=== PATIENT | female | born 1980 | race Hispanic/Latino ===

== ENCOUNTER 2020-03-23 11:15 | Inpatient (IN) | payer MEDICAID, OTHER, SELFPAY ==
[2020-03-23] MEDS ORDERED: hydrALAZINE 20 MG/ML VIAL SLOW IVP PRN ×3 (11:42→18:15)
[2020-03-23] MEDS ORDERED: Acetaminophen 500 MG TAB PO PRN (11:51)
[2020-03-23] MEDS ORDERED: Lactated Ringer's 1,000 ML IV SCH (12:00)
--- NOTE | 2020-03-23 12:07 | PDOC.FPROB ---
FMR OB H&P: Medications - Current Home Medications: Medication Instructions Recorded Confirmed Type Vit,Calc76/Iron/Folic 1 tablet PO DAILY 10/01/15 03/23/20 History [Prenatabs Rx Tablet] Aspirin [Ecotrin Low Strength] 81 mg PO DAILY 03/23/20 03/23/20 History Allergies/Adverse Reactions: Allergies Allergy/AdvReac Type Severity Reaction Status Date / Time No Known Allergies Allergy Verified 10/02/15 12:09 FMR OB H&P: Vital Signs - Maternal Vital signs: Vital Signs - First Documented Temp Pulse Resp BP 98.2 F 59 L 18 156/8 H 03/23/20 11:19 03/23/20 11:19 03/23/20 11:19 03/23/20 11:19 FMR OB H&P: A/P - Problem List (1) Delivered by delivery following previous delivery Current Visit: No Status: Acute Code(s): [id number] - (2) Previous delivery affecting Current Visit: No Status: Acute Code(s): O34.21 - MATERNAL CARE FOR SCAR FROM PREVIOUS * DO NOT USE * Discussion: Date/Time: 03/23/20 1206 PCP: SENAIT Dhillon HPI: Patient sent over from clinic for evaluation of pre-e. High pressures in clinic 157/91, 148/89. Here 156/92, 140/92. States she has had headache for 1 day, no visual changes, no swelling. Does have epigastric burning after eating, pain radiates to LUQ. She affirms movement, denies cxns, ROM, bleeding. History: OB hx: C/s x3, A1GDM, denies history of PIH, AMA, Varicella non-immune PMH: denies asthma, htn PSH: c/s x3 Meds: PNV All: NKDA Soc Hx: denies smoking, alcohol, drugs Fam Hx: 1 child with down syndrome GBS: neg Blood type: O+ Ab screen: neg HIV: neg RPR: neg Hep B: neg Rubella: immune Quad Screen: 2 hr GTT: + GC/CT: neg NIPT: neg REVIEW OF SYSTEMS: Gen: no fever, chills, or sweats Neuro: no numbness/tingling, no weakness, denies headache ENT: denies congestion Eyes: no visual changes Resp: denies cough, no production, no SOB, no wheeze Card: denies chest pain, no palpitations GI: denies nausea, vomiting, diarrhea : no dysuria, no hematuria Skin: no rash, no erythema Psych: denies hx anxiety/depression Vitals: T: 98.5 R: 18 BP: 133/69 (max 156/92) P:67 at: 98% on RA PHYSICAL EXAMINATION: General: NAD, alert and oriented x3 HEENT: EOMI, normal sclera Neck: Supple. Full ROM. Heart/Cardiovascular System: RRR, Cap refill < 3 seconds, no rub, no murmur Lungs/Respiratory System: clear to auscultation bilaterally. No increased work of breathing. Room air. Abdomen/Gastro-Intestinal System: no abdominal tenderness, normal bowel sounds, Gravid Extremities: Warm extremities. No cyanosis or edema. Neuro: No gross deficits appreciated Psychiatry: Awake, Alert and cooperative with exam Skin: no lesions, no rashes Musculoskeletal: Full ROM A/P: This is a 39yo at 37.7 weeks by 25.3 sono FHT: 140 baseline, mod variability, no decels, accels present [place]: no contractions # PIH eval - Cbc, cmp, urine pr/cr - Repeated elevated pressure (157/91, 148/89, 156/92, 140/92) - Monitor pressures, may need to proceed with delivery pending eval # - Posterior placenta - [place] 14.3% @ 34wks - Previous c/s x3 - Late to care, dated by 25 wk US # Varicella non- immune - Vaccine PP # A1GDM # AMA
[2020-03-23 12:16] LABS: Hemoglobin 11.8 g/dL (12.0-16.0); Mean Corpuscular HGB CONC 31.2 g/dL (32.0-36.0); Mean Corpuscular Hemoglobin 28.1 pg (27.0-31.0); Mean Corpuscular Volume 90.1 fL (78.0-98.0); Mean Platelet Volume 10.1 fL (7.4-10.4); Platelet Count 221 thou/uL (130-400); RBC Distribution Width 14.1 % (11.5-14.5); Red Blood Cell (RBC) Count 4.18 mill/uL (4.20-5.40); White Blood Cell (WBC) Count 7.2 thou/uL (4.8-10.8)
[2020-03-23 12:26] LABS: Creatinine, Urine Less than 20.00 mg/dL (47-110); Protein, Urine Random Quant Less than 10 mg/dL (1-14)
[2020-03-23 12:34] LABS: ALT (SGPT) 23 U/L (8-55); AST (SGOT) 20 U/L (5-34); Albumin 3.4 g/dL (3.5-5.0); Alkaline Phosphatase 179 U/L (40-110); Anion Gap 14 mmol/L (10-20); BUN (Urea Nitrogen) 9 mg/dL (7.0-18.7); Bilirubin, Total 0.2 mg/dL (0.2-1.2); Calc. Creatinine Clearance 130 mL/min (70-130); Calcium 8.8 mg/dL (7.8-10.44); Carbon Dioxide 19 mmol/L (22-29); Chloride 104 mmol/L (98-107); Estimated GFR-MDRD Greater than 90; Glucose 80 mg/dL (70-105); Potassium 4.3 mmol/L (3.5-5.1); Protein, Total 6.4 g/dL (6.0-8.3); Sodium 133 mmol/L (136-145)
[2020-03-23] MEDS ORDERED: Ondansetron PF 4 MG/2 ML Vial IVP PRN ×3 (13:12→19:25)
[2020-03-23] MEDS ORDERED: Promethazine HCl 25 MG/ML VIAL IM PRN ×2 (13:12→19:25)
[2020-03-23] MEDS ORDERED: CEFAZOLIN 2 GM in Premix Bag 1 BAG IVPB SCH (13:15)
[2020-03-23] MEDS ORDERED: Bicitra 30 ML UDCUP PO SCH (13:15)
[2020-03-23 13:56] LABS: HBSAg Index 0.16 S/CO (0-0.99); Hep B Surf Ag Non-Reactive S/CO (NonReactive); Syphilis Antibody Nonreactive (Nonreactive); Syphilis Antibody Index 0.03 S/CO (<1.00 Non-Reactive)
[2020-03-23 13:57] VITALS: BMI 40.4
--- NOTE | 2020-03-23 14:01 | PDOC.BPN ---
- Brief Progress Note Pr/Cr ratio negative CBC, CMP WNL patient with consistent mild range pressures, 2 severe range pressure headache improved Patient late to care, currently 37.5 weeks by 23 wk coleen Discussed R/B/A to c/s with patient including NICU stay for baby. She is in agreement. Will admit patient and proceed with
[2020-03-23] MEDS ORDERED: Fentanyl 100 MCG/2 ML VIAL ONE (14:51)
[2020-03-23] MEDS ORDERED: MORPHINE 5 MG/10 ML PF VIAL ONE (14:51)
[2020-03-23] MEDS ORDERED: Dexamethasone 4 mg/ml Vial ONE (14:52)
[2020-03-23] MEDS ORDERED: Oxytocin 10 UNITS/ML VIAL ONE (14:52)
[2020-03-23] MEDS ORDERED: PHENYLEPHRINE-NS 100 MCG/ML 10 ML SYRINGE ONE (14:52)
[2020-03-23] MEDS ORDERED: Ondansetron PF 4 MG/2 ML Vial ONE (14:52)
[2020-03-23] MEDS ORDERED: EPHEDRINE 25 MG/5 ML SYRINGE ONE (15:01)
[2020-03-23] MEDS ORDERED: Ketorolac Tromethamine 30 MG/ML VIAL ONE (15:01)
[2020-03-23] MEDS ORDERED: NS / Oxytocin 40 units/1000ml 1,000 ML ONE (18:07)
[2020-03-23] MEDS ORDERED: Lanolin Ointment 7 GM TUBE TOP PRN (18:15)
[2020-03-23] MEDS ORDERED: HYDROcodone/Acetaminophen 5/325 mg Tablet PO PRN ×2 (18:15)
[2020-03-23] MEDS ORDERED: diphenhydrAMINE 25 MG CAP PO PRN (18:15)
[2020-03-23] MEDS ORDERED: Naloxone HCl 0.4 mg/ml Vial IV PRN (19:25)
[2020-03-23] MEDS ORDERED: diphenhydrAMINE 50 MG/ML VIAL IVP PRN (19:25)
[2020-03-23] MEDS ORDERED: L&D-Morphine 4 MG/ML VIAL SLOW IVP PRN (19:25)
[2020-03-23] MEDS ORDERED: Ondansetron HCl/PF 4 MG/2 ML Vial IVP PRN (19:25)
[2020-03-23] MEDS ORDERED: HYDROmorphone 2 MG/ML VIAL SLOW IVP PRN (19:25)
[2020-03-23] MEDS ORDERED: Promethazine HCl 25 MG SUPP PR PRN (19:25)
[2020-03-23] MEDS ORDERED: Meperidine HCl/PF 25 MG/ML VIAL SLOW IVP PRN (19:25)
[2020-03-23] MEDS ORDERED: Naloxone HCl 0.4 mg/ml Vial IVP PRN ×2 (19:25)
[2020-03-23] MEDS ORDERED: Communication Order-Pharmacy FS SCH (19:30)
--- NOTE | 2020-03-23 19:43 | OP ---
DATE OF PROCEDURE: 03/23/2020 PREOPERATIVE DIAGNOSES: 1. Term intrauterine . 2. Gestational hypertension. 3. Advanced maternal age. 4. A1 gestational diabetes. POSTOPERATIVE DIAGNOSES: 1. Term intrauterine , delivered. 2. Gestational hypertension. 3. Extensive fascial adhesions. 4. Advanced maternal age. 5. A1 gestational diabetes ATTENDING SURGEON: Sonu Valladares MD PRIMARY SURGEON: Vale Dhillon DO PERSONAL TRAINER SURGEON: Juan Manuel Fu DO PROCEDURE: Repeat low-transverse section. INDICATIONS FOR PROCEDURE: This is a 39-year-old female, G4, P3-0-0-3 at 37.5 weeks by 25.3 week sono who presented from clinic with elevated blood pressures. The patient has no known diagnosis of chronic hypertension or previous diagnosis of gestational hypertension or preeclampsia. Preeclampsia labs were negative, but the patient did throw two severe range pressures approximately 30 minutes apart and received hydralazine. No further severe range pressures, requiring magnesium. However, the patient did meet the criteria for gestational hypertension and a decision was made to proceed with low-transverse given new diagnosis of gestational hypertension and current gestational age. Patient with history of C/S x3. Plan for repeat C/S. PROCEDURE IN DETAIL: After risks, benefits, and alternatives were discussed with the patient in detail, she gave informed consent. The patient was taken to the operating room, where spinal anesthesia was initiated. She was placed in the supine position in a left lateral tilt. Antibiotics included 2 g of cefazolin IV. The patient was prepped and draped in the usual sterile fashion. A Pfannenstiel incision was made along the previous scar, then carried down to the level of the fascia, which was sharply nicked. The fascial edges were extended laterally with Arana scissors. The superior and inferior edges of the cut fascial edges were then lifted with Fouzia clamps and the underlying rectus muscles were sharply and bluntly dissected free. Careful attention was paid to avoid bowel and bladder during this process. A small opening was noted through the midline of the rectus muscle and it was extended manually. The peritoneum was entered bluntly and extended manually. No uterine adhesions appreciated. An Mikel O was placed. A low-transverse score was made along the lower segment of the uterus using a scalpel. The hysterotomy was extended manually. The amniotic sac was ruptured using Allis clamp. Clear fluid was noted. The infant was noted to be vertex and was easily delivered by fundal pressure. Of note, there was one loose nuchal cord x1, which was reduced prior to delivery through the hysterotomy. The cord was clamped and cut and a grossly normal female infant was handed to the awaiting nurse. Cord blood was then collected. Placenta was extracted manually. It was found to be intact with three-vessel cord and discarded. Uterus was curetted with a dry lap. Hysterotomy was then closed in a running locking fashion using #[address] An imbricating layer was performed using #[address] in a running locking fashion. Some bleeders were still noted particularly on the left lateral aspect of the hysterotomy. This was repaired using #1 chromic suture in a [id number] fashion. After this, hemostasis was noted. Irrigation was performed using warm normal saline. The hysterotomy was examined after the Mikel O was removed and again noted to be hemostatic. The abdominal muscles were examined and bleeders were cauterized. The fascia was then closed using 0 PDS suture in a running nonlocking fashion. Subcutaneous tissue was approximated using 2-0 plain gut in simple interrupted fashion. The skin was then approximated using 4-0 monofilament. Dermabond was applied. Pressure dressing then applied. All counts correct. The patient was taken to the recovery room in stable condition. COMPLICATIONS: None. Note: Fairly extensive fascial adhesions, but no intraabdominal adhesions appreciated. Placenta intact with three-vessel cord noted and discarded. Grossly normal female infant with Apgars of 8 and 9 at one and five minutes respectively. QUANTITATIVE BLOOD LOSS: 345 mL. DRAINS: [place] to gravity, draining clear urine. Job ID: [id number] [facility]
[2020-03-23] MEDS: Ferrous Sulfate 325 MG TAB PO SCH (21:00)
[2020-03-23] MEDS: Docusate Calcium (SURFAK) 240 MG CAP PO SCH (21:00)
[2020-03-23] MEDS: Simethicone Chewable 80 MG TAB PO SCH (21:22)
[2020-03-23] MEDS: Ketorolac Tromethamine 30 MG/ML VIAL IVP PRN (21:22)
[2020-03-24] MEDS: Simethicone Chewable 80 MG TAB PO SCH ×5 (01:05→22:06)
[2020-03-24] MEDS: Lactated Ringer's 1,000 ML IV SCH ×2 (02:30→03:47)
[2020-03-24] MEDS: Ketorolac Tromethamine 30 MG/ML VIAL IVP PRN (03:36)
[2020-03-24 05:34] LABS: Hemoglobin 9.5 g/dL (12.0-16.0); Mean Corpuscular HGB CONC 32.9 g/dL (32.0-36.0); Mean Corpuscular Hemoglobin 30.1 pg (27.0-31.0); Mean Corpuscular Volume 91.3 fL (78.0-98.0); Mean Platelet Volume 9.9 fL (7.4-10.4); Platelet Count 154 thou/uL (130-400); Red Blood Cell (RBC) Count 3.16 mill/uL (4.20-5.40); White Blood Cell (WBC) Count 8.6 thou/uL (4.8-10.8)
[2020-03-24] MEDS: HYDROcodone/Acetaminophen 5/325 mg Tablet PO PRN ×3 (07:10→20:15)
--- NOTE | 2020-03-24 07:32 | PDOC.PP ---
Post Progress Note Post Day #: 1 Subjective: Patient with abdominal pain near incision overnight and this AM. She denies any other concerns. She states she is passing flatus. She has not had a BM. Patient tolerating PO. Patient denies headache, vision changes, chest pain, or shortness of breath. She has not ambulated since surgery. PO intake tolerated: yes Flatus: yes Ambulation: no Vital Signs (12 hours) Temp Pulse Resp BP Pulse Ox 03/24/20 03:35 98.5 F 69 18 102/58 L 98 03/24/20 01:05 98.5 F 60 18 132/73 98 03/23/20 20:25 98.1 F 64 18 140/77 98 Weight Weight 62.596 kg - Physical Examination General: NAD Cardiovascular: RRR Respiratory: non-labored breathing Abdominal: lochia (minimal), no distention, appropriately TTP Fundus firm & at: below umbilicus Extremities: negative homans (B) Deviation from normal: Bandage in place over incision clean, dry, intact Neurological: no gross focal deficits Psychiatric: A&Ox3, normal affect Result Diagrams: 03/24/20 05:04 03/23/20 11:53 Additional Labs: Post Labs Blood Type O POSITIVE 03/23/20 13:53 Hep Bs Antigen Non-Reactive S/CO (NonReactive) 03/23/20 11:51 (1) Term delivered Code(s): O80 - ENCOUNTER FOR FULL-TERM UNCOMPLICATED DELIVERY Status: Acute (2) Gestational hypertension Code(s): O13.9 - GESTATIONAL HTN W/O SIGNIFICANT PROTEINURIA, UNSP TRIMESTER Status: Acute (3) Advanced maternal age (AMA) in Code(s): [id number] - Status: Acute (4) Obesity Code(s): E66.9 - OBESITY, UNSPECIFIED Status: Acute (5) Delivered by delivery following previous delivery Code(s): [id number] - Status: Acute - Assessment/Plan 39 year old G4 now P4 delivered term female at 15:30 on 03/23 via rLTCS Routine PP care - Pain control with ibuprofen and [place]; patient in pain this AM but has not received any [place] - Simethicone for gas pains - Encourage ambulation; discussed importance with patient - Rh positive, Rubella immune - Lochia minimal - H/H this AM 9.5/28.8 - D/c gosia [place] - BPs ranged from 102/58-140/77 overnight - No interventions necessary - Continue to monitor AMA - Unable to find NIPT screen; will call [facility] today - No obvious signs of DS; although patient does have previous with DS Obesity - Encourage ambulation Varicella non-immune - Varicella vaccine to be given Dispo: Stable. Work on pain control. Anticipate d/c home tomorrow or Friday.
[2020-03-24] MEDS: Ferrous Sulfate 325 MG TAB PO SCH ×2 (08:41→22:05)
[2020-03-24] MEDS: Docusate Calcium (SURFAK) 240 MG CAP PO SCH ×2 (08:42→22:06)
[2020-03-24] MEDS: Prenatal Vitamin 1 TAB PO SCH (08:44)
[2020-03-24] MEDS ORDERED: Adacel (T-DAP) 0.5 ML SYRINGE IM ONE (09:00)
[2020-03-24] MEDS ORDERED: Varicella virus, LIVE 0.5 ML VIAL SC ONE (09:00)
[2020-03-24] MEDS: Ibuprofen 800 MG TAB PO SCH (22:07)
[2020-03-25] MEDS: Simethicone Chewable 80 MG TAB PO SCH ×7 (01:16→21:27)
[2020-03-25] MEDS: HYDROcodone/Acetaminophen 5/325 mg Tablet PO PRN ×4 (01:29→18:15)
[2020-03-25] MEDS: Ibuprofen 800 MG TAB PO SCH ×3 (05:18→21:26)
--- NOTE | 2020-03-25 06:09 | PDOC.EVN ---
Event Note - Event Note Event Note: OBGYN Faculty Patient seen at bedside Doing well, but gets some gas discomfort. No BM. Abd NT, non-distended See [facility] resident notes
--- NOTE | 2020-03-25 07:12 | PDOC.PP ---
Post Progress Note Post Day #: 2 Subjective: Patient doing better this AM. No lochia. States she is having gas pains. Ambulating without much difficulty. Tolerating PO. Has yet to have BM. Patient states she would like to stay another night with plan for d/c home tomorrow. PO intake tolerated: yes Flatus: yes Ambulation: yes Vital Signs (12 hours) Temp Pulse Resp BP Pulse Ox 03/25/20 05:15 98.3 F 67 18 131/70 03/25/20 01:15 98.8 F 52 L 18 123/68 03/24/20 19:50 98.6 F 60 18 134/78 99 Weight Weight 62.596 kg - Physical Examination General: NAD Cardiovascular: no m/r/g, RRR Respiratory: clear to auscultation bilaterally, non-labored breathing Abdominal: + bowel sounds, lochia (none), no distention, appropriately TTP Fundus firm & at: below umbilicus Extremities: negative homans (B) Skin: CS incision dry & intact, no rash Neurological: no gross focal deficits Psychiatric: A&Ox3, normal affect Result Diagrams: 03/24/20 05:04 03/23/20 11:53 Additional Labs: Post Labs Blood Type O POSITIVE 03/23/20 13:53 Hep Bs Antigen Non-Reactive S/CO (NonReactive) 03/23/20 11:51 (1) Term delivered Code(s): O80 - ENCOUNTER FOR FULL-TERM UNCOMPLICATED DELIVERY Status: Acute (2) Gestational hypertension Code(s): O13.9 - GESTATIONAL HTN W/O SIGNIFICANT PROTEINURIA, UNSP TRIMESTER Status: Acute (3) Advanced maternal age (AMA) in Code(s): [id number] - Status: Acute (4) Obesity Code(s): E66.9 - OBESITY, UNSPECIFIED Status: Acute (5) Delivered by delivery following previous delivery Code(s): [id number] - Status: Acute - Assessment/Plan 39 year old G4 now P4 delivered term female infant at 15:30 on 03/23 via [facility]LTCS Routine PP care - Post op day #2 s/p rLTCS - Pain control with ibuprofen and [place] - Simethicone for gas pains - Encourage ambulation; discussed importance with patient - Rh positive, Rubella immune - Lochia minimal - H/H post op 9.5/28.8 - GBS negative gHTN - BPs all <140/90 in last 24 hours - No interventions necessary - Continue to monitor AMA - NIPT negative - No obvious signs of DS; although patient does have previous with DS Obesity - Encourage ambulation Varicella non-immune - Varicella vaccine to be given A1GDM - Will need 2h GTT at 6 wk PP check Dispo: Stable. Plan for d/c home tomorrow
[2020-03-25] MEDS: Prenatal Vitamin 1 TAB PO SCH (09:42)
[2020-03-25] MEDS: Docusate Calcium (SURFAK) 240 MG CAP PO SCH ×2 (09:42→21:27)
[2020-03-25] MEDS: Ferrous Sulfate 325 MG TAB PO SCH ×2 (09:43→21:26)
[2020-03-25] MEDS: Lactated Ringer's 1,000 ML IV SCH (10:52)
[2020-03-26] MEDS: Simethicone Chewable 80 MG TAB PO SCH ×4 (00:35→12:42)
[2020-03-26] MEDS: HYDROcodone/Acetaminophen 5/325 mg Tablet PO PRN ×3 (04:07→12:42)
[2020-03-26] MEDS: Ibuprofen 800 MG TAB PO SCH (05:57)
--- NOTE | 2020-03-26 06:50 | PDOC.PP ---
Post Progress Note Post Day #: 3 Subjective: Patient doing well this morning. She endorses intermittent pain in abdomen which is relieved with pain medications. Of note, patient had last normal BP documented at 19:00 last night. BP's since that time have been in 140's-150's. Nurse initially attributed this to pain, but only two BP's documented overnight and they were nearly 8 hours apart which is not enough data points to assess adequately and patient high risk. Patient denies headache, vision changes, RUQ pain, increased swelling. PO intake tolerated: yes Flatus: yes Ambulation: yes Vital Signs (12 hours) Temp Pulse Resp BP Pulse Ox 03/26/20 05:58 67 16 144/72 H 03/26/20 04:09 98.1 F 74 18 155/79 H 98 03/25/20 19:27 98.4 F 61 18 146/71 H 98 Weight Weight 62.596 kg - Physical Examination General: NAD Cardiovascular: no m/r/g, RRR Respiratory: clear to auscultation bilaterally, non-labored breathing Abdominal: + bowel sounds, lochia (minimal), no distention, appropriately TTP Fundus firm & at: below umbilicus Extremities: negative homans (B) Skin: CS incision dry & intact, no rash Neurological: no gross focal deficits Psychiatric: A&Ox3, normal affect Result Diagrams: 03/26/20 07:01 03/26/20 07:01 Additional Labs: Post Labs Blood Type O POSITIVE 03/23/20 13:53 Hep Bs Antigen Non-Reactive S/CO (NonReactive) 03/23/20 11:51 (1) Term delivered Code(s): O80 - ENCOUNTER FOR FULL-TERM UNCOMPLICATED DELIVERY Status: Acute (2) Gestational hypertension Code(s): O13.9 - GESTATIONAL HTN W/O SIGNIFICANT PROTEINURIA, UNSP TRIMESTER Status: Acute (3) Advanced maternal age (AMA) in Code(s): [id number] - Status: Acute (4) Obesity Code(s): E66.9 - OBESITY, UNSPECIFIED Status: Acute (5) Delivered by delivery following previous delivery Code(s): [id number] - Status: Acute - Assessment/Plan 39 year old G4 now P4 delivered term female infant at 15:30 on 03/23 via [facility]LTCS Routine PP care - Post op day #3 s/p rLTCS - Pain control with ibuprofen and [place] - Simethicone for gas pains - Encourage ambulation; discussed importance with patient - Rh positive, Rubella immune - Lochia minimal - H/H post op 9.5/28.8 - GBS negative gHTN - BP's overnight 140's-150's. Concern now for pre-E - Pre-E labs pending - q2h BP checks - Only two documented temps overnight; do not have enough data points to adequately assess at this time - If next 2 BP checks still elevated >140/90, consider starting oral medication - If BP's normalize, patient will need BP check tomorrow at [facility] AMA - NIPT negative - No obvious signs of DS; although patient does have previous infant with DS Obesity - Encourage ambulation Varicella non-immune - Varicella vaccine to be given A1GDM - Will need 2h GTT at 6 wk PP check Dispo: Stable. Monitor BP's this AM. If BP's continue to be elevated this AM, may need to start on oral medication. Possible d/c home later today.
[2020-03-26 07:09] LABS: #Eosinphils 0.1 thou/uL (0.0-0.7); #Lymphocytes 2.4 thou/uL (1.20-3.40); #Monocytes 0.5 thou/uL (0.11-0.59); #Neutrophils 8.9 thou/uL (1.40-6.50); %Basophils 0.3 % (0.0-1.0); %Eosinophils 1.2 % (0.0-10.0); %Monocytes 4.5 % (0.0-10.0); Hemoglobin 10.1 g/dL (12.0-16.0); Mean Corpuscular HGB CONC 33.7 g/dL (32.0-36.0); Mean Corpuscular Volume 91.8 fL (78.0-98.0); Mean Platelet Volume 9.6 fL (7.4-10.4); Platelet Count 173 thou/uL (130-400); RBC Distribution Width 14.7 % (11.5-14.5); Red Blood Cell (RBC) Count 3.26 mill/uL (4.20-5.40)
[2020-03-26 07:44] LABS: ALT (SGPT) 39 U/L (8-55); AST (SGOT) 38 U/L (5-34); Alkaline Phosphatase 132 U/L (40-110); Anion Gap 11 mmol/L (10-20); BUN (Urea Nitrogen) 7 mg/dL (7.0-18.7); Bilirubin, Total 0.2 mg/dL (0.2-1.2); Calc. Creatinine Clearance 130 mL/min (70-130); Calcium 8.4 mg/dL (7.8-10.44); Carbon Dioxide 24 mmol/L (22-29); Chloride 106 mmol/L (98-107); Estimated GFR-MDRD Greater than 90; Globulin 2.6 g/dL (2.4-3.5); Glucose 89 mg/dL (70-105); Potassium 4.3 mmol/L (3.5-5.1); Protein, Total 5.6 g/dL (6.0-8.3); Sodium 137 mmol/L (136-145)
[2020-03-26 07:46] VITALS: TEMP 98
[2020-03-26] MEDS: Ferrous Sulfate 325 MG TAB PO SCH (08:35)
[2020-03-26] MEDS: Docusate Calcium (SURFAK) 240 MG CAP PO SCH (08:35)
[2020-03-26] MEDS: Prenatal Vitamin 1 TAB PO SCH (08:35)
[2020-03-26 09:26] LABS: Creatinine, Urine 72.11 mg/dL (47-110); Protein, Urine Random Quant Less than 10 mg/dL (1-14)
[2020-03-26 12:52] VITALS: BP 136/74
== END 2020-03-26 14:20 | disposition home or self-care (01) | DRG 788 ==
LOC: L&D/OP 11:15 → L&D 13:54 → 3SW 18:37
PROVIDERS: ADMIT Obstetrics & Gynecology; ATTEND Obstetrics & Gynecology
PROC: 10D00Z1 Extraction of Products of Conception, Low, Open Approach (ICD-10-PCS; principal; 2020-03-23)
DX: O13.4 Gestational [pregnancy-induced] hypertension without significant proteinuria, complicating childbirth (principal); O34.211 Maternal care for low transverse scar from previous cesarean delivery; O99.214 Obesity complicating childbirth; E66.9 Obesity, unspecified; O24.429 Gestational diabetes mellitus in childbirth, unspecified control; Z3A.37 37 weeks gestation of pregnancy; Z37.0 Single live birth
CPT/HCPCS: 36415; 51702; 80053; 82570; 84156; 85025; 85027; 86780; 86850; 86900; 86901; 87340; 99285; J0360; J1100; J1885; J2274; J2405; J2590; J3010

== ENCOUNTER 2023-03-09 11:31 | Emergency (ER) | payer MEDICAID, SELFPAY ==
[2023-03-09 12:43] LABS: #Lymphocytes 1.8 thou/uL (1.20-3.40); #Monocytes 0.8 thou/uL (0.11-0.59); #Neutrophils 3.2 thou/uL (1.40-6.50); %Basophils 0.4 % (0.0-1.0); %Eosinophils 0.1 % (0.0-10.0); %Lymphocytes 31.4 % (21.0-51.0); %Monocytes 13.2 % (0.0-10.0); Hemoglobin 11.9 g/dL (12.0-16.0); Mean Corpuscular HGB CONC 34.4 g/dL (32.0-36.0); Platelet Count 206 10x3/uL (130-400); RBC Distribution Width 17.6 % (11.5-14.5); Red Blood Cell (RBC) Count 3.97 mill/uL (4.20-5.40); White Blood Cell (WBC) Count 5.7 10x3/uL (4.8-10.8)
[2023-03-09 12:51] LABS: BHCG - Serum Negative (NEGATIVE); Pregs Control Background? CLEAR/WHITE (CLR/WHITE); Pregs Control Bar Appear? YES (CONTROL BAR)
[2023-03-09 12:54] LABS: PTT 27.3 sec (22.9-36.1); Prothrombin Time 14.1 sec (12.0-14.7)
[2023-03-09 12:56] LABS: ALT (SGPT) 27 U/L (8-55); AST (SGOT) 23 U/L (5-34); Acetaminophen Less than 10.0 mcg/mL (10.0-30.0); Albumin 4.1 g/dL (3.5-5.0); Alcohol Less than 10 mg/dL (Less than 10); Alkaline Phosphatase 58 U/L (40-110); Anion Gap 13 mmol/L (10-20); BUN (Urea Nitrogen) 11 mg/dL (7.0-18.7); Bilirubin, Total 0.2 mg/dL (0.2-1.2); Calc. Creatinine Clearance 0 mL/min (70-130); Calcium 8.7 mg/dL (7.8-10.44); Carbon Dioxide 21 mmol/L (22-29); Chloride 106 mmol/L (98-107); Estimated GFR 103; Globulin 3.2 g/dL (2.4-3.5); Glucose 123 mg/dL (70-105); Potassium 3.4 mmol/L (3.5-5.1); Protein, Total 7.3 g/dL (6.0-8.3); Salicylate Less than 8.0 mg/dL (15.0-30.0); Sodium 137 mmol/L (136-145)
[2023-03-09] MEDS ORDERED: valACYclovir 500 MG TAB PO SCH (14:15)
[2023-03-09] MEDS ORDERED: predniSONE 20 MG TAB ONE (14:20)
== END 2023-03-09 14:30 | disposition home or self-care (01) ==
LOC: ERS 11:31
DX: G51.0 Bell's palsy (principal)
CPT/HCPCS: 70496; 70498; 71045; 80053; 80307; 84443; 84484; 84703; 85025; 85610; 85730; 93005; 94760; J7512